=== PATIENT | male | born 1970 | race American Indian/Alaskan Native ===

== ENCOUNTER 2017-09-21 00:17 | Emergency (ER) | payer OTHER ==
[2017-09-21 00:40] VITALS: BP 113/81
[2017-09-21] MEDS ORDERED: BOOSTRIX IM ONE (05:38)
--- NOTE | 2017-09-21 05:42 | Emergency Department Report ---
ED Laceration HPI - HPI Chief Complaint: Laceration/Recheck/Suture Stated Complaint: LAC TO HAND Time Seen by Provider: 09/21/17 05:18 Occurred When: Today Location: Upper Extremity Severity: mild Tetanus Status: Unknown Laceration Symptoms: Yes Pain, No Foreign Body Sensation, No Numbness, No Weakness Other History: Patient is a 47-year-old who presents with laceration to the second digit of the right hand. Patient states he was trying to cut a piece of ham when he accidentally cut himself. Patient states he does not recall his last tetanus update. He denies fevers/chills/other problems. ED Review of Systems ROS: Stated complaint: LAC TO HAND Other details as noted in HPI Constitutional: denies: chills, fever Eyes: denies: eye pain, eye discharge, vision change ENT: denies: ear pain, throat pain Respiratory: denies: cough, shortness of breath, wheezing Cardiovascular: denies: chest pain, palpitations Endocrine: no symptoms reported Gastrointestinal: denies: abdominal pain, nausea, diarrhea Genitourinary: denies: urgency, dysuria Musculoskeletal: denies: back pain, joint swelling, arthralgia Skin: denies: rash, lesions Neurological: denies: headache, weakness, paresthesias Psychiatric: denies: anxiety, depression Hematological/Lymphatic: denies: easy bleeding, easy bruising ED Past Medical Hx - Past Medical History Previous Medical History?: No - Surgical History Past Surgical History?: No - Social History Smoking Status: Current Every Day Smoker Substance Use Type: Alcohol, Marijuana - Medications Home Medications: Home Medications Medication Instructions Recorded Confirmed Last Taken Type Acetaminophen/Codeine [Tylenol 1 tab PO Q6HR PRN #10 tablet 09/21/17 Unknown Rx /Codeine # 3 tab] Cephalexin [Keflex] 500 mg PO Q12HR #10 cap 09/21/17 Unknown Rx Ibuprofen [Motrin] 800 mg PO Q8HR PRN #30 tablet 09/21/17 Unknown Rx Laceration Physical Exam - Exam General: Vital signs noted. No distress. Alert and acting appropriately. Wound Length (cm): 2 Laceration Location: Upper Extremity (finger, right index) Laceration Exam: Yes Normal Distal CMS, No Foreign Body, No Exposed Tendon, Vessel, or Nerve, No Tendon Injury ED Course Vital Signs 09/21/17 00:35 Temperature 97.6 F Pulse Rate 80 Respiratory 16 Rate Blood Pressure 113/81 O2 Sat by Pulse 97 Oximetry - Laceration /Wound Repair Right Posterior Finger Wound Location: upper extremity Wound Length (cm): 2 Wound's Depth, Shape: superficial, linear Wound Explored: clean Irrigated w/ Saline (ccs): 100 Betadine Prep?: Yes Anesthesia: 1% Lidocaine Volume Anesthetic (ccs): 5 Wound Repaired With: sutures Suture Size/Type: 4:0 Number of Sutures: 5 Layer Closure?: No Sterile Dressing Applied?: Yes ED Medical Decision Making - Medical Decision Making 47-year-old male presents with finger laceration ED course: Patient received a tetanus booster in ED The 2cm laceration wound was prepped and draped in sterile fashion. Anesthesia was achieved with 5mL of 1% lidocaine. The wound was irrigated with 100cc NS and explored. There were no foreign bodies The wound was reapproximated in 1 layer with 5 sutures suing with 3-0 monofilament sutures in the dermis with interrupted sutures percutaneously. There was excellent reapproximation of the wound edges. The patient tolerated the procedure without complication Return to ED in 7-10 days for suture removal Follow-up to primary care physician Critical care attestation.: If time is entered above; I have spent that time in minutes in the direct care of this critically ill patient, excluding procedure time. ED Disposition Clinical Impression: Laceration of finger of right hand without damage to nail Qualifiers: Encounter type: initial encounter Finger: thumb Foreign body presence: without foreign body Qualified Code(s): S61.011A - Laceration without foreign body of right thumb without damage to nail, initial encounter Disposition: TO HOME OR SELFCARE Is pt being admited?: No Does the pt Need Aspirin: No Condition: Stable Instructions: Suture Care (ED), Laceration (ED), Finger Laceration (ED) Additional Instructions: Make sure to follow up with the primary care physician as discussed. Take all your medications as you've been prescribed. If you have any worsening symptoms or develop new symptoms please return to ED immediately. Return ED 7-10 days for suture removal. Prescriptions: Acetaminophen/Codeine [Tylenol /Codeine # 3 tab] 1 tab PO Q6HR PRN #10 tablet PRN Reason: Pain Cephalexin [Keflex] 500 mg PO Q12HR #10 cap Ibuprofen [Motrin] 800 mg PO Q8HR PRN #30 tablet PRN Reason: Pain Referrals: PRIMARY CARE, [Primary Care Provider] - 3-5 Days Forms: Accompanied Note, Work/School Release Form(ED) Time of Disposition: 05:41
== END 2017-09-21 05:57 | disposition home or self-care (01) ==
LOC: ED 00:17
DX: S61.210A Laceration without foreign body of right index finger without damage to nail, initial encounter (principal); F17.200 Nicotine dependence, unspecified, uncomplicated; F12.10 Cannabis abuse, uncomplicated; W45.8XXA Other foreign body or object entering through skin, initial encounter; Y93.89 Activity, other specified; Y92.89 Other specified places as the place of occurrence of the external cause; Y99.8 Other external cause status
CPT/HCPCS: 90471; 90715; 99282